=== PATIENT | female | born 1990 | race African-American/Black ===

== ENCOUNTER 2020-09-10 19:09 | Emergency (ER) | payer OTHER, SELFPAY ==
[2020-09-10 19:12] VITALS: BP 129/79; PULSE 81; RESP 18; TEMP 36.3; O2SAT 100; BMI 42.3
[2020-09-10] MEDS: Lidocaine HCl 1 % MPF 5 ML VIAL SUBCUT (20:09)
--- NOTE | 2020-09-10 20:18 | ED_ITS ---
HPI - Wound/Laceration General Chief Complaint: Wound/Laceration Stated Complaint: LAC Time Seen by Provider: 09/10/20 19:36 Source: patient Mode of arrival: ambulatory Limitations: no limitations History of Present Illness HPI narrative: superficial laceration to the right ring finger at home on knife that she was cleaning. Up-to-date on tetanus vaccination last December. Location: other ( Left ring finger) Related Data Allergies Allergy/AdvReac Type Severity Reaction Status Date / Time No Known Allergies Allergy Verified 09/10/20 19:12 Review of Systems Review of Systems: Constitutional: No Weight loss, No Fever, No Chills, No Nig ht Sweats, No Fatigue, No Malaise ENT/Mouth: No Hearing loss, No Ear Pain, No Nasal Congestion, No Sinus Pain, No Hoarseness, No sore throat, No Rhinorrhea, No Swallowing Difficulty Eyes: No Eye Pain, No Swelling, No Redness, No Foreign Body, No Discharge, No Vision Changes Cardiovascular: No Chest Pain, No SOB, No Dyspnea on Exertion, No Orthopnea, No Edema, No Palpitations Respiratory: No Cough, No Sputum, No Wheezing, Gastrointestinal: No Nausea, No Vomiting, No Diarrhea, No Constipation, No abdominal Pain Genitourinary: no irregular bleeding, No Dysuria, No Urinary Frequency Musculoskeletal: No joint pain, No Myalgias, No Joint Swelling Skin: No Skin Lesions, No rash, as noted in HPI Neuro: No Numbness Heme/Lymph: No Bruising, No Bleeding,No Lymphadenopathy Endocrine: No Polyuria, No Polydipsia, No Temperature Intolerance Yes all other systems are reviewed and are negative [facility] Past Medical History Medical History (Updated 09/10/20 @ 20:18 by Victor Hugo Amin NP) Pre-diabetes Social History Social History Alcohol intake: never Smoked in Last 30 Days: No Use of substances other than those prescribed or required for medical reasons: No Advance Directives: No Advance Directives Information Provided: No Physical Exam Vital Signs: Vital Signs: Last Vital Signs Temp 97.3 F 09/10/20 19:12 Pulse 81 09/10/20 19:12 Resp 18 09/10/20 19:12 BP 129/79 09/10/20 19:12 Pulse Ox 100 09/10/20 19:12 Body Mass Index 42.3 reviewed Const: General: cooperative and healthy appearing; No acute distress or intoxicated appearing Nutritional Appearance: average body habitus Orientation/consciousness: patient oriented x3 Chest: Chest palpation & inspection: normal inspection of the chest Resp: Effort & Inspection: normal respiratory effort Cardio: Jugular venous distension: no JVD Skin: General skin exam: no rashes or lesions noted Neuro: General: patient oriented x3 Extrem: General: Yes normal to inspection Hand/finger images: 1. U shaped 0.5 cm superficial laceration just to the adipose tissue. No deep laceration. Full range of motion. Able to fully grasp and flex/extend. Procedures Laceration Laceration 1: Site: hand ( Right ring finger) Size (cm): 0.5 Description: flap Depth: simple, single layer Local Anesthetic: lidocaine 1% Amount of anesthesia used (mL): 5 Pre-repair: wound explored Skin layer closed with: nylon Size (cm): 5-0 Number of sutures: 1 Technique: simple, interrupted MDM - Wound/Laceration MDM Narrative Medical decision making narrative: superficial laceration to the right ring finger repaired with single suture with ease using digital block. Up-to-date on tetanus vaccination. Home care, return/ follow-up instructions provided. Differential Diagnosis Differential diagnosis: Likely laceration, abrasion and avulsion of skin Medical Records Attestation: I reviewed the patient's medical records. Lab Data Attestation: I reviewed the patient's lab results. Discharge Plan Discharge Clinical Impression: Laceration Patient Disposition: Home, Self-Care Instructions: Finger Laceration (ED) Additional Instructions: keep finger clean and dry Have sutures removed in 7 days Monitor for signs of infection including redness, swelling, discharge if any of this presents have re-evaluation in the ER Thank you Referrals: ED Physician,Generic [Emergency Provider] - 1 week ( return to emergency room or primary care in 7 days to have the sutures removed)
== END 2020-09-10 20:30 | disposition home or self-care (01) ==
PROVIDERS: Emergency Provider Emergency Medicine Emergency Medical Services
DX: S61.214A Laceration without foreign body of right ring finger without damage to nail, initial encounter (principal); M79.641 Pain in right hand; W26.0XXA Contact with knife, initial encounter; Y93.E9 Activity, other interior property and clothing maintenance; Y92.009 Unspecified place in unspecified non-institutional (private) residence as the place of occurrence of the external cause; Y99.9 Unspecified external cause status
CPT/HCPCS: 12001; 99284

== ENCOUNTER 2020-09-26 13:22 | Outpatient (REF) | payer OTHER, SELFPAY | END 2020-09-26 13:23 | disposition home or self-care (01) | LOC: HO.LAB 13:22 | PROVIDERS: Visit Provider Internal Medicine | DX: Z20.828 Contact with and (suspected) exposure to other viral communicable diseases (principal) | CPT/HCPCS: C9803; U0003 ==

== ENCOUNTER 2020-12-10 10:02 | Outpatient (REF) | payer OTHER, SELFPAY ==
[2020-12-10 14:05] LABS: Hematocrit 39.1 % (37-47); Hemoglobin 12.4 g/dl (12.0-16.0); Mean Corpuscular HGB Conc 31.7 g/dl (31.0-35.0); Mean Corpuscular Hemoglobin 25.1 pg (27.0-33.0); Mean Platelet Volume 11.5 fL (9.4-12.3); Platelet Count 331 X10*3/uL (160-400); Red Blood Count 4.95 X10*6/uL (4.20-5.50); Red Cell Distribution Width 15.6 % (11.0-16.0); White Blood Count 6.9 X10*3/uL (4.8-10.8)
[2020-12-10 14:29] LABS: Alanine Aminotransferase 20 U/L (0-31); Albumin Level 4.1 g/dL (3.5-5.0); Alkaline Phosphatase 68 U/L (39-117); Anion Gap 13 (12-20); Aspartate Amino Transferase 16 U/L (5-31); Bilirubin Direct 0.2 mg/dL (0.0-0.5); Bilirubin Total 0.5 mg/dL (0.0-1.0); Blood Urea Nitrogen 12 mg/dL (9-16); Calcium 9.4 mg/dL (8.4-10.2); Carbon Dioxide 24 mmol/L (22-29); Chloride 103 mmol/L (96-108); Cholesterol 124 mg/dL; Estimated Glomerular Filt Rate > 60; Glucose Fasting 80 mg/dL (60-99); HDL Cholesterol 36 mg/dL; LDL Cholesterol Calculated 78 mg/dl; Potassium 4.3 mmol/L (3.3-5.1); Sodium 136 mmol/L (135-145); Triglycerides 54 mg/dL
[2020-12-10 14:53] LABS: TSH reflex Free T4 0.91 uIU/mL (0.32-4.0)
== END 2020-12-10 10:03 | disposition home or self-care (01) ==
LOC: HO.WFDLDS 10:02
PROVIDERS: Visit Provider Hospitalist
DX: Z00.00 Encounter for general adult medical examination without abnormal findings (principal)
CPT/HCPCS: 36415; 80048; 80061; 80076; 84443; 85027

== ENCOUNTER 2021-12-08 14:02 | Emergency (ER) | payer OTHER, SELFPAY ==
[2021-12-08 16:04] VITALS: BP 129/81; PULSE 73; RESP 18; TEMP 36.8; O2SAT 100; BMI 43.8
--- NOTE | 2021-12-08 16:48 | ED_ITS ---
History of Present Illness General Chief Complaint: Epistaxis Stated Complaint: excessive nose bleeds Time Seen by Provider: 12/08/21 16:27 Source: patient Mode of arrival: ambulatory Limitations: no limitations History of Present Illness HPI Narrative: 31-year-old female who presents emergency department for evaluation of intermittent bleeding from right nares over the past 1/2 weeks. The patient states that she has always had difficulty with nose bleeds ever since she was a child. She states that she gets nose bleeds frequently. She states that if she puts anything in her nose like a Kleenex were she sneezes, this will often trigger bleeding. She states that over the past 4 5 days she has been bleeding 4 to 5 times a day for short periods of time. She states that the bleeding often stops if she pinches her nose. The patient states she does have bruising but does not think that is worse than usual. She does not have any bleeding from her gums. She currently has an IUD but she states that her menstrual periods have never been severe. She has not been ill in any other way. She did talk to her doctor who advised her to go to the emergency department to see if she needed a ?balloon ?inserted in her nose. Location: Yes right nares Onset/current episode: Yes week(s) (1.5) Duration: Yes intermittent Pertinent past history: Yes history of previous nose bleed Context: Yes history of previous nose bleed Associated symptoms: Yes other (None) Treatment prior to arrival: Yes nose pinching Related Data Previous Rx's Medication Instructions Recorded sodium chloride 0.65 % nasal spray 1 spray INTRANASAL Q2H PRN #45 ml 12/08/21 aerosol ([place] Saline) Allergies Allergy/AdvReac Type Severity Reaction Status Date / Time No Known Allergies Allergy Verified 12/08/21 16:04 Review of Systems Review of Systems: Yes all other systems are reviewed and are negative [facility] Past [facility] History [facility] Narrative: Past medical history: None. Past surgical history: None. Social history: She denies tobacco, alcohol and drug use. Source: unable to obtain Medical History Pre-diabetes Family History Family History Maternal Grandmother Diabetes Social History Social History Housing: Apartment Alcohol intake: never Patient Tobacco Use Status: Never used Tobacco e-Cigarette/Vaping Use: Never Used Advance Directives: No Advance Directives Information Provided: No Patient : No service: No Current occupational status: employed Current occupational exposures/hazards: No Cognitive needs: No Hearing needs: No Vision needs: No Physical Exam Vital Signs: Vital Signs: Last Vital Signs Temp 98.3 F 12/08/21 16:04 Pulse 73 12/08/21 16:04 Resp 18 12/08/21 16:04 BP 129/81 12/08/21 16:04 Pulse Ox 100 12/08/21 16:04 BMI result Body Mass Index 43.8 Const: Other: Awake, alert, female patient, very pleasant and cooperative, she does not appear to be in distress, she answers all questions appropriately, she is not actively bleeding from her nose. HENMT: Other: The patient does have a small clot over Kesselbauch's plexus on the nasal septum in her right naris. This area is not actively bleeding. There is also dry blood noted in the right naris, the left nares is normal. Head: Yes normal to inspection, Yes normocephalic and Yes atraumatic Ears: external ears normal General nose exam: Normal external nose present Face and sinus: Yes normal facial exam Eyes: General: appearance normal, both eyes and all related structures Resp: Effort & Inspection: normal respiratory effort Psych: Appearance: grossly normal Mental Status: mental status grossly normal Speech and movement: Normal speech and movement present Affect: normal affect Course Course Course Narrative: 31-year-old female who presents emergency department for evaluation intermittent bleeding from her right nares over the last 1/2 weeks. She states that she will bleed for brief periods of time 4 to 5 times a day. The patient states she has had this problem for many years. She has not had any other concerning signs or symptoms of clotting disorders. On her physical examination she does have a sm all clot over the nasal septum in the area of Kesselbach's plexus which is most likely the source of her bleeding. She is not actively bleeding at this time therefore I do not think that she needs nasal packing or a rhino rocket I did discuss this with her. She was given a nose clip and advised to apply this for 20-30 minutes whenever she has bleeding and she should do this until her bleeding resolves. She was given printed and verbal instructions and discharged home. Discharge Plan Discharge Clinical Impression: Epistaxis Patient Disposition: Home, Self-Care Instructions: Nosebleed (ED) Additional Instructions: At this time, on the right side of your nose, along the nasal septum, I can see a very small blood clot in the area of Kesselbach's plexis. Kesselbach's plexus is an area on the nasal septum where there are 4- 5 arteries and veins that come together and often causes bleeding if the skin over this plexus is accidentally scraped or injured. This is often the cause of recurrent nose bleeding. At this time, I do not think that you need a rhino rocket (gauze covered bal loon) inserted in your nose. Rather, I think that if you continue to use pressure for 20-30 minute with the nose plug that I gave you , this should eventually stop the bleeding and hopefully eventually the area over the plexus will heal. Follow-up with your doctor in 2 days. Please return to the emergency department if your symptoms get worse or if you develop any symptoms that are concerning to you. Prescriptions: No Action [place] Saline 0.65 % aerosol,spray 1 spray intranasal Q2H PRN (Reason: dry nasal passages) Qty: 45 5RF
== END 2021-12-08 17:17 | disposition home or self-care (01) ==
PROVIDERS: Emergency Provider Emergency Medicine Emergency Medical Services; PCP Hospitalist
DX: R04.0 Epistaxis (principal)
CPT/HCPCS: 99283

== ENCOUNTER 2023-10-05 11:57 | Outpatient (REF) | payer OTHER, SELFPAY ==
[2023-10-05 12:14] LABS: MANUAL DIFF FLAG NO
[2023-10-05 12:47] LABS: Basophils Percent Auto 0.3 % (0-2); Eosinophils Absolute Auto 0.1 X10*3/uL (0.0-0.4); Eosinophils Percent Auto 1.3 % (0-4); Hematocrit 37.9 % (37.0-47.0); Hemoglobin 11.8 g/dl (12.0-16.0); Imm Gran Abs Auto 0.07 X10*3/uL (0.00-0.03); Imm Gran Pct Auto 0.7 % (0.0-0.4); Lymphocytes Percent Auto 29.9 % (20-40); Mean Corpuscular HGB Conc 31.1 g/dl (31.0-35.0); Mean Corpuscular Hemoglobin 25.1 pg (27.0-33.0); Mean Corpuscular Volume 80.6 fL (80.0-98.0); Monocytes Absolute Auto 0.5 X10*3/uL (0.1-1.2); Monocytes Percent Auto 5.3 % (2-11); Neutrophils Absolute Auto 6.2 x10*3/uL (2.0-8.3); Neutrophils Percent Auto 62.5 % (45-73); Platelet Count 428 X10*3/uL (160-400); Red Cell Distribution Width 15.6 % (11.0-16.0); White Blood Count 9.9 X10*3/uL (4.8-10.8)
[2023-10-05 13:43] LABS: Alanine Aminotransferase 18 U/L (0-31); Albumin Level 3.7 g/dL (3.5-5.0); Alkaline Phosphatase 61 U/L (39-117); Anion Gap 12 (12-20); Aspartate Amino Transferase 15 U/L (5-31); Bilirubin Total 0.3 mg/dL (0.0-1.0); Blood Urea Nitrogen 8 mg/dL (9-16); Calcium 9.4 mg/dL (8.4-10.2); Carbon Dioxide 29 mmol/L (22-29); Chloride 104 mmol/L (96-108); Cholesterol 144 mg/dL (<200); Estimated Glomerular Filt Rate > 60; Glucose Fasting 77 mg/dL (60-99); HDL Cholesterol 44 mg/dL (>40); LDL Cholesterol Calculated 80 mg/dL (<100); Potassium 4.2 mmol/L (3.3-5.1); Sodium 141 mmol/L (135-145); Total Protein 7.8 g/dL (6.5-8.0); Triglycerides 103 mg/dL (<150)
[2023-10-05 15:35] LABS: Appearance Urine Clear; Color Urine Yellow; Glucose Urine UA Negative (Negative); Leukocyte Esterase Urine Negative (Negative); Nitrite Urine Negative (Negative); PH 5.5 (5.0-9.0); Specific Gravity - Urine 1.015 (1.005-1.025); Urine Blood Negative (Negative); Urine Ketones Negative (Negative); Urine Protein Negative (Neg-Trace)
== END 2023-10-05 11:58 | disposition home or self-care (01) ==
LOC: HO.LAB 11:57
PROVIDERS: PCP Nurse Practitioner Family; Visit Provider Nurse Practitioner Family
DX: Z00.00 Encounter for general adult medical examination without abnormal findings (principal); Z20.2 Contact with and (suspected) exposure to infections with a predominantly sexual mode of transmission
CPT/HCPCS: 36415; 80053; 80061; 81003; 84443; 85025

== ENCOUNTER 2023-12-13 13:10 | Outpatient (AMB) | payer OTHER, SELFPAY ==
--- NOTE | 2023-12-13 13:11 | MHC.PC.OV ---
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 Required: No Accompanied by: Self / Same As Patient Allergies No Known Allergies Allergy (Verified 12/13/23 13:57) Medication List - Last Reconciled 12/13/23 by Benjamin Norton CNP sodium chloride 0.65% ([place] Saline) 1 spray intranasal Q2H PRN Tobacco use date assessed: 12/13/23 Dental Screening Dental Screen Date: 12/13/23 Did you have a dental visit in the last 12 months?: No Did you have a dental problem in the last 6 months where you did not have access to dental care?: No Was dental information given to patient?: Patient has dentist HPI HPI Comments History of Present Illness Details 33-year-old female presents for transfer of care Her former PCP is BG who is no longer with the practice She has history of obesity and prediabetes She has not on prescription medications She offers no complaints and denies acute symptoms at this time She loss 25 lb within the past year. She notes that she loss weight because her tragically and she has been grieving She notes that she has been maintaining a healthy diet. She has not been exercising but plans on doing when the weather improves She notes that her last pap smear test was at [facility] on 06/2023: normal Nonsmoker, drinks alcohol occasionally, no recreational drugs She notes that she is no currently sexual active [facility] Medical History (Updated 12/13/23 @ 14:10 by Benjamin Norton CNP) Pre-diabetes Surgical History (Updated 12/13/23 @ 13:18 by Juany Perkins MA) No pertinent past surgical history Family History Maternal Grandmother Diabetes Social History Housing: Apartment Alcohol intake: never Patient Tobacco Use Status: Never used Tobacco e-Cigarette/Vaping Use: Never Used service: No Current occupational status: employed 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 1. Little interest or pleasure in doing things: not at all 2. Feeling down, depressed, or hopeless: not at all 3. Trouble falling or staying asleep, or sleeping too much: not at all 4. Feeling tired or having little energy: not at all 5. Poor appetite or overeating: not at all 6. Feeling bad about yourself - or that you are a failure or have let yourself or your family down: not at all 7. Trouble concentrating on things, such as reading the newspaper or watching television: not at all 8. Moving or speaking so slowly that other people could have noticed. Or the opposite - being so fidgety or restless that you have been moving around a lot more than usual: not at all 9. Thoughts that you would be better off or of hurting yourself in some way: not at all Total score: 0 Depression Screening Interpretation: Negative Depression Screening Done: Yes 89343 - PHQ-9 Billing: Yes Source: Developed by Drs. Andres Mai, Елена Hernandez, David Dominguez and colleagues, with an educational glory from [employer]. Thrive Questionnaire Date Thrive assessed: 12/13/23 I am a: Patient What is your living situation today?: I have a steady place to live Within the past 12 months, did the food you bought not last and you didn't have the money to get more?: Never true Within the past 12 months, did you worry whether your food would run out before you got money to buy more?: Never true Do you have trouble paying for medicines?: No Do you have trouble getting transportation to medical appointments?: No Do you have trouble paying your heating and electricity bill?: No Do you have trouble taking care of your child, family member or friend?: No Do you have trouble with day-to-day activities such as bathing, preparing meals, shopping, managing finances, etc.?: No Are you currently unemployed and looking for a job?: No Are you interested in more education?: No Please select the resources that you would like help with: None Currently or been in a relationship where the following occur: no concerns reported THRIVE Score: 0 AUDIT C Alcohol Use Questionnaire (AUDIT-C) 1. How often do you have a drink containing alcohol?: Monthly or less 2. How many drinks containing alcohol do you have on a typical day when you are drinking?: 1 or 2 3. How often do you have six or more drinks on one occasion?: Never Total Score: 1 HUMERA-7 AMB Questionnaire HUMERA-7 Date HUMERA - 7 assessed: 12/13/23 Feeling nervous, anxious, or on edge: 0 = Not at all Not being able to stop or control worryin = Not at all Worrying too much about different things: 0 = Not at all Trouble relaxin = Not at all Being so restless that it is hard to sit still: 0 = Not at all Becoming easily annoyed or irritable: 0 = Not at all Feeling afraid as if something awful might happen: 0 = Not at all Total HUMERA-7 score (0-4 normal; 5-9 mild; 10-14 moderate; 15-21 severe): 0 Source: Developed by Drs. Andres Mai, Елена Hernandez, David Dominguez and colleagues, with an educational glory from [employer]. HUMERA-7 Assessment Billing HUMERA-7 Assessment Tool: HUMERA-7 Assessment 33108 Physical exam (Primary Care) Vital Signs: Last Vital Signs Temp 97.3 F 12/13/23 13:12 Pulse 88 12/13/23 13:12 Resp 13 12/13/23 13:12 BP 104/76 12/13/23 13:12 Pulse Ox 99 12/13/23 13:12 Oxygen Delivery Method Room Air 12/13/23 13:12 BMI result Body Mass Index 39.9 Tobacco/Smoking Status: Tobacco use Status Tobacco use date assessed 12/13/23 12/13/23 13:20 Patient Tobacco Use Status Never used Tobacco 12/13/23 13:20 e-Cigarette/Vaping Use Never Used 12/13/23 13:20 PHQ-9: PHQ-9 Score PHQ-9: Total score 0 12/13/23 13:20 Depression Screening Interpretation: Negative Thrive Assessment: Date of Thrive Assessment Date Thrive assessed 12/13/23 12/13/23 13:20 Currently or been in a relationship where the following occur: no concerns reported Assessment and Plan Assessment & Plan (1) Normal physical examination, routine: Code(s): Z00.00 - Encounter for general adult medical examination without abnormal findings Plan: No significant physical restrictions or limitations noted Healthy diet and routine exercise encouraged Recent blood work reviewed with the patient Advised to schedule her next physical exam for year from today Return sooner with symptoms or concerns Verbalized understanding and agreed with treatment plan (2) Morbid obesity due to excess calories: Code(s): E66.01 - Morbid (severe) obesity due to excess calories Plan: She lost 25 lb in the past 1 year as a results of grieving her tragically She admits to making healthy dietary changes and plans to start exercising once the weather improves Healthy diet and routine exercise encouraged Follow-up with symptoms or concerns Verbalized understanding and agreed with treatment plan Coding Level of Care Code Est Pt Prev Care [id number]) Diagnoses Normal physical examination, routine Z00.00 Morbid obesity due to excess calories E66.01 Additional Codes HUMERA-7 Assessment Billing - HUMERA-7 Assessment Tool: HUMERA-7 Assessment [id number] ([id number])
[2023-12-13 13:12] VITALS: BP 104/76; PULSE 88; RESP 13; TEMP 36.3; O2SAT 99; BMI 39.9
== END 2023-12-13 14:11 | disposition home or self-care (01) ==
PROVIDERS: PCP Nurse Practitioner Family; Visit Provider Nurse Practitioner Family
DX: Z00.00 Encounter for general adult medical examination without abnormal findings (principal); E66.01 Morbid (severe) obesity due to excess calories; Z68.39 Body mass index [BMI] 39.0-39.9, adult
CPT/HCPCS: 99395